=== PATIENT | female | born 1980 | race Caucasian/White ===

== ENCOUNTER 2019-01-18 23:19 | Emergency (ER) | payer MEDICAID ==
[~2019-01-18] VITALS: Ht 152.4 cm; Wt 62.1 kg
--- NOTE | 2019-01-18 23:39 | NUR ---
TO BED # 07 AMBULATORY, REPORT GIVEN TO VIRI JONES
--- NOTE | 2019-01-19 00:05 | NUR ---
Dr. Garduno evaluating patient at bedside.
--- NOTE | 2019-01-19 00:05 | NUR ---
38 YO F BIB SELF PRESENTS TO ED WITH CO 10/10 MENSTRUAL CRAMP PAIN X 2 DAYS WITH HEAVY VAGINAL BLEEDING X 1 DAY. PT REPORTS SHE CHANGED HER TAMPON X 10 IN 1 DAY AND SHE NOTES MULTIPLE CLOTS. PMH: DENIES RX: DENIES PT POSITIONED FOR COMFORT. HOB ELEVATED. SIDE RAIL UP X 1. BED IN LOWEST POSITION. VSS. NO APPARENT DISTRESS AT THIS TIME.
--- NOTE | 2019-01-19 00:20 | NUR ---
Pelvic exam performed by Dr. Garduno with ROBERT Lackey at bedside for entire examination. Patient tolerated procedure well. Patient assisted to position of comfort after examination.
[2019-01-19 00:48] LABS: BASOPHILS % (AUTO) 0.5 % (0.0-2.0); EOSINOPHILS # (AUTO) 0.1 K/uL (0-0.4); EOSINOPHILS % (AUTO) 1.4 % (0.0-4.0); HEMATOCRIT 32.6 % (36-48); HEMOGLOBIN 11.1 g/dL (12.0-16.0); LYMPHOCYTES # (AUTO) 1.2 K/uL (2.5-16.5); LYMPHOCYTES % (AUTO) 15.3 % (20.5-51.1); MEAN CORPUSCULAR HEMOGLOBIN 32 pg (27-31); MEAN CORPUSCULAR HGB CONC 34 g/dL (33-37); MEAN CORPUSCULAR VOLUME 92.9 fL (80-94); MONOCYTES # (AUTO) 0.5 K/uL (0.8-1.0); MONOCYTES % (AUTO) 6.9 % (1.7-9.3); NEUTROPHILS # (AUTO) 5.8 K/uL (1.8-7.7); NEUTROPHILS % (AUTO) 75.9 % (42.2-75.2); PLATELET COUNT (AUTO) 274 K/uL (140-450); RED BLOOD CELL COUNT(AUTO) 3.51 MIL/uL (4.20-5.40); RED CELL DISTRIBUTION WIDTH 12.5 % (11.6-13.7); WHITE BLOOD COUNT (AUTO) 7.7 K/uL (4.8-10.8)
[2019-01-19] MEDS ORDERED: IBUPROFEN 800 MG TAB PO ONE (01:10)
[2019-01-19 01:29] VITALS: BP 109/52
--- NOTE | 2019-01-19 01:29 | NUR ---
Patient discharged with v/s stable. Written and verbal after care instructions given and explained. Patient verbalized understanding. Ambulatory with steady gait. All questions addressed prior to discharge. Advised to follow up with PMD.
== END 2019-01-19 01:29 | disposition home or self-care (01) ==
LOC: MED 23:19
DX: N93.9 Abnormal uterine and vaginal bleeding, unspecified (principal); R10.30 Lower abdominal pain, unspecified
CPT/HCPCS: 36415; 81002; 81025; 85025; 99283

== ENCOUNTER 2020-09-28 13:04 | Emergency (ER) | payer MEDICAID ==
[~2020-09-28] VITALS: Ht 165.1 cm; Wt 59.9 kg
[2020-09-28 13:08] VITALS: BP 142/72
[2020-09-28 14:47] LABS: BASOPHILS # (AUTO) 0.1 K/uL (0.00-0.22); BASOPHILS % (AUTO) 0.3 % (0.0-2.0); EOSINOPHILS # (AUTO) 0.1 K/uL (0-0.4); EOSINOPHILS % (AUTO) 0.6 % (0.0-4.0); HEMATOCRIT 35.4 % (36-48); HEMOGLOBIN 11.7 g/dL (12.0-16.0); LYMPHOCYTES # (AUTO) 1.1 K/uL (2.5-16.5); LYMPHOCYTES % (AUTO) 5.6 % (20.5-51.1); MEAN CORPUSCULAR HEMOGLOBIN 30 pg (27-31); MEAN CORPUSCULAR HGB CONC 33 g/dL (33-37); MEAN CORPUSCULAR VOLUME 91.3 fL (80-94); MONOCYTES # (AUTO) 0.7 K/uL (0.8-1.0); MONOCYTES % (AUTO) 3.6 % (1.7-9.3); NEUTROPHILS # (AUTO) 16.8 K/uL (1.8-7.7); NEUTROPHILS % (AUTO) 89.9 % (42.2-75.2); PLATELET COUNT (AUTO) 284 K/uL (140-450); RED BLOOD CELL COUNT(AUTO) 3.87 MIL/uL (4.20-5.40); WHITE BLOOD COUNT (AUTO) 18.7 K/uL (4.8-10.8)
[2020-09-28 15:13] LABS: ALBUMIN 3.6 g/dL (3.4-5.0); ANION GAP 9.9 (8-16); CARBON DIOXIDE 29.1 mmol/L (21-32); CREATININE 0.8 mg/dL (0.6-1.3); TOTAL BILIRUBIN 0.3 mg/dL (0.0-1.0)
[2020-09-28 15:13] LABS: APPEARANCE,URINE CLEAR (CLEAR); BILIRUBIN,URINE NEGATIVE (NEGATIVE); BLOOD, URINE 3+ (NEGATIVE); COLOR,URINE YELLOW (YELLOW); LEUKOCYTE ESTERASE ,URINE NEGATIVE (NEGATIVE); NITRITE, URINE NEGATIVE (NEGATIVE); UGLUCOSE NEGATIVE (NEGATIVE)
[2020-09-28 15:51] LABS: RBC,URINE 11-20 (MOD) /HPF (0-5)
[2020-09-28] MEDS: IBUPROFEN 400 MG TAB PO ONE (17:16)
[2020-09-28] MEDS: HYDROcodone/APAP 5/325 MG 1 TAB TAB PO ONE (17:17)
--- NOTE | 2020-09-28 18:00 | NUR ---
This is a 39-year-old female with no past medical history, presenting to the emergency department for an acute onset, constant right flank pain associated with dysuria since yesterday. Pain is mild, nonradiating. She states that she has been taking Tylenol which provided moderate relief. No exacerbating factors. She states that she is currently on her menstrual cycle. Symptoms started at rest. Otherwise, she denies any urinary frequency or urgency, fevers, chills, nausea, vomiting, diarrhea, constipation, abdominal pain, chest pain, shortness breath, loss of taste or smell, cough, coronavirus contacts, history of kidney stones, or any other complaints.
[2020-09-28 18:10] VITALS: BP 142/72
--- NOTE | 2020-09-28 18:10 | NUR ---
Patient discharged with v/s stable. Written and verbal after care instructions given and explained. Patient alert, oriented and verbalized understanding of instructions. Ambulatory with steady gait. All questions addressed prior to discharge. ID band removed. Patient advised to follow up with PMD. Rx of NORCO, BACTRIM, NAPROSYN given. Patient educated on indication of medication including possible reaction and side effects. Opportunity to ask questions provided and answered.
== END 2020-09-28 18:10 | disposition home or self-care (01) ==
LOC: MED 13:04
DX: N12 Tubulo-interstitial nephritis, not specified as acute or chronic (principal)
CPT/HCPCS: 36415; 80053; 81001; 81025; 85025; 87086; 99284